=== PATIENT | male | born 1955 | race Caucasian/White ===

== ENCOUNTER 2017-12-20 00:14 | Emergency (ER) | payer MEDICARE ==
[~2017-12-20] VITALS: Ht 172.7 cm; Wt 97.0 kg
[2017-12-20 00:40] VITALS: BP 120/83
== END 2017-12-20 03:34 | disposition left against medical advice (07) ==
LOC: ER 02:25
DX: Z76.0 Encounter for issue of repeat prescription (principal); Z53.21 Procedure and treatment not carried out due to patient leaving prior to being seen by health care provider